=== PATIENT | female | born 1990 | race Caucasian/White ===

== ENCOUNTER 2017-04-24 10:10 | Inpatient (IN) | payer MEDICAID ==
[2017-04-24] VITALS (64 sets, daily range): BP systolic 83–137; BP diastolic 50–102; PULSE 59–154; RESP 16–20; TEMP 97.7–98.9
[~2017-04-24 10:10] MED LIST: CALNTAB; ENOX30IN SQ; HEPA10003 SQ; MAGN250T11 PO
[2017-04-24] MEDS ORDERED: SODIUM CHLORID 0.9% 500 ML INJ 500 ML IV PRN (12:00)
[2017-04-24] MEDS ORDERED: LIDOCAINE HCL 1% 50 ML VIAL INFIL PRN (12:00)
[2017-04-24] MEDS ORDERED: ONDANSETRON HCL 4 MG/2 ML VIAL IV PRN (12:00)
[2017-04-24] MEDS ORDERED: MINERAL OIL 10 ML VIAL TOPICAL PRN (12:00)
[2017-04-24] MEDS ORDERED: CITRIC ACID-SODIUM CITRATE LIQ 30 ML UDC PO SCH (12:00)
[2017-04-24] MEDS ORDERED: LIDOCAINE HCL 1% 50 ML VIAL I-DERMAL PRN (12:00)
[2017-04-24] MEDS ORDERED: LACTATED RINGER'S 1000 ML INJ 1,000 ML IV PRN (12:00)
[2017-04-24] MEDS ORDERED: OXYTOCIN 30 UNITS-500ML PREMIX 500 ML IV ONE (12:00)
--- NOTE | 2017-04-24 12:05 | PD ---
HPI Chief Complaint Contractions Date Seen: April 24, 2017 Time Seen: 10:00 (Seth Siddiqi MD R2) Travel History International Travel<30 Days: No Contact w/Intl Traveler<30Days: No Known Affected Area: No (Seth Siddiqi MD R2) History of Present Illness HPI Patient is a 26-year-old G1 at 39/5 weeks gestation presenting due to regular contractions. Patient reports that she began to experience contractions at 9 AM this morning. Contractions initially occurred about every 5 minutes and have increased in frequency to every 2-3 minutes. She endorses movement, denies vaginal bleeding, leakage of fluid. Last dose of heparin was at 11pm last night. care has been with [facility] after 33 weeks, Care transferred from OB provider in [place], Dr. Luke. In 2009 she had a knee injury and her right lower extremity was immobilized and she was found to have a DVT. She had a PE in 2009. She has been on Lovenox since 16 weeks and was started on Heparin 7,500 units BID since 35 weeks gestation. complications: 1. Pt with history of DVT and PE, on Heparin 7,500 units BID 2. Transfer of care at 33 weeks Para: 0 : 1 (Seth Siddiqi MD R2) History Past Medical History Narrative Medical History of DVT and PE in 2009 (Seth Siddiqi MD R2) Obstetric History Obstetric History G1 Pt denies any complications with current . She was started on Lovenox at 16 weeks and started on Heparin at 35 weeks due to history of DVT and PE. (Seth Siddiqi MD R2) Allergies-Medications (Allergen,Severity, Reaction): Coded Allergies: No Known Allergies (Unverified , 04/22/17) Home Meds Active Scripts Heparin Sodium (Porcine) (Heparin Sodium)10,000 Unit/Ml Inj7,500 Unit SQ BID # 25 BOX Ref 5 Prov:Gemini Cunningham CNM [employer] 03/27/17 Reported Medications Enoxaparin Inj 30 Mg/0.3ML Syr30 Mg SQ DAILY Ref 0 03/12/17 Vitamin (Calna)1 Tab Tab 03/12/17 Magnesium Oxide 250 Mg [id number] Mg PO DAILY Ref 0 03/12/17 Review of Systems General / Constitutional: No: Fever, Chills Eyes: No: Visual changes HENT: No: Headaches Cardiovascular: No: Chest Pain or Discomfort Respiratory: No: Cough Gastrointestinal: Abdominal Pain, No: Nausea, Vomiting Genitourinary: No: Dysuria Musculoskeletal: No: Edema Skin: No Rash Neurologic: No: Headache Psychiatric: No: Mood Disorder (eSth Siddiqi MD R2) Physical Exam Narrative GENERAL: Well-nourished, well-developed patient. SKIN: Warm and dry. HEAD: Normocephalic and atraumatic. EYES: No scleral icterus. No injection or drainage. ENT: No nasal drainage noted. Mucous membranes pink. Airway patent. NECK: Supple, trachea midline. No JVD. CARDIOVASCULAR: Regular rate and rhythm without murmurs, gallops, or rubs. RESPIRATORY: Breath sounds equal bilaterally. No accessory muscle use. ABDOMEN/GI: Abdomen soft, non-tender, bowel sounds present, no rebound, no guarding Gravid to 39 weeks size GENITOURINARY: External Genitalia: intact and normal in appearance Cervix: posterior Dilatation: 3cm Effacement: Station: -3 Presentation: vertex Membranes: Intact Uterine Contractions: Q1-2 minutes FHT's: Category: 1 Baseline: 130 Reactive: + Variability:Moderate Decels: Absent EXTREMITIES: No cyanosis or edema. NEUROLOGICAL: Awake and alert. Motor and sensory grossly within normal limits. Five out of 5 muscle strength in all muscle groups. Normal speech. (Seth Siddiqi MD R2) Data Data Orders Ob (2e) Additional Admit Info (04/24/17 11:56) Admit To Inpatient (04/24/17 ) Code Status (04/24/17 12:00) Vital Signs (Adult) .Per protocol (04/24/17 12:00) Activity Oob Ad Sade (04/24/17 12:00) Heart (04/24/17 12:00) Amnioinfusion (04/24/17 12:00) Urinary Catheter Management .ONCE (04/24/17 12:00) Diet Liquid (04/24/17 Lunch) Lactated Ringer's 1000 Ml Inj (Lr 1000 M (04/24/17 12:00) Lactated Ringer's 1000 Ml Inj (Lr 1000 M (04/24/17 12:00) Sodium Chlorid 0.9% 500 Ml Inj (Ns 500 M (04/24/17 12:00) Sodium Chlor 0.9% 1000 Ml Inj (Ns 1000 M (04/24/17 12:20) Lidocaine 1% Inj (50 Ml) (Xylocaine 1% I (04/24/17 12:00) Citric Acid-Sodium Citrate Liq (Bicitra (04/24/17 12:00) Ondansetron Inj (Zofran Inj) (04/24/17 12:00) Fentanyl Inj (Fentanyl Inj) (04/24/17 12:00) Fentanyl Inj (Fentanyl Inj) (04/24/17 12:00) Complete Blood Count With Diff (04/24/17 12:00) Hold Clot (04/24/17 12:00) Abo/Rh Blood Type (04/24/17 12:00) Urinalysis - C+S If Indicated (04/24/17 12:00) Type And Screen (04/24/17 12:00) Resp Oxygen Non Rebreathe Mask (04/24/17 ) ^ Epidural / Intrathecal Infus (04/24/17 12:00) Oxytocin 30 Units-500ml Premix (Pitocin (04/24/17 12:00) Lidocaine 1% Inj (50 Ml) (Xylocaine 1% I (04/24/17 12:00) Light Mineral Oil (Muri-Lube Oil) (04/24/17 12:00) Inpatient Certification (04/24/17 ) (Seth Siddiqi MD R2) MDM Interpretation(s) Patient is a 26-year-old G1 at 39/5 weeks gestation presenting due to regular contractions. Pt with history of DVT and PE in 2010 and has been on Lovenox until 35 weeks and now on Heparin during this . 1) IUP Category 1 tracing, Reassuring Last dose of heparin was at 11PM Pt desires epidural GBS negative Will admit for labor Pt desires Epidural dw Dr. Fisher (Seth Siddiqi MD R2) Attestation Agree with above. Admit for delivery. (Betty Fisher MD) Seth Siddiqi MD R2 April 24, 2017 12:05 Betty Fisher MD April 24, 2017 14:49
[2017-04-24] MEDS ORDERED: SODIUM CHLOR 0.9% 1000 ML INJ 1,000 ML IV PRN (12:20)
[2017-04-24] MEDS: LACTATED RINGER'S 1000 ML INJ 1,000 ML IV SCH ×3 (12:39→21:42)
[2017-04-24 13:09] LABS: AUTOMATED NEUTROPHIL # 15.3 TH/MM3 (1.8-7.7); BASOPHIL % 0.1 % (0.0-2.0); EOSINOPHIL # 0.1 TH/MM3 (0-0.4); EOSINOPHIL % 0.3 % (0.0-4.0); HEMATOCRIT 42.8 % (35.0-46.0); HEMO FLAGS DIFF FINAL; LYMPHOCYTE # 2.4 TH/MM3 (1.0-4.8); MEAN CELL VOLUME 97.6 FL (80.0-100.0); MEAN CORPUSCULAR HEMOGLOBIN 34.1 PG (27.0-34.0); MEAN CORPUSCULAR HGB CONC 34.9 % (32.0-36.0); MONO % 4.6 % (0.0-8.0); PLATELET COUNT 253 TH/MM3 (150-450); RED BLOOD COUNT 4.38 MIL/MM3 (4.00-5.30); RED CELL DISTRIBUTION WIDTH 11.9 % (11.6-17.2); WHITE BLOOD COUNT 18.6 TH/MM3 (4.0-11.0)
[2017-04-24] MEDS ORDERED: fentaNYL 2MCG-BUPIV 0.125% INJ 100 ML ONE (13:17)
[2017-04-24] MEDS ORDERED: ePHEDrine/NS 25 MG/5 ML SYR ONE (13:17)
[2017-04-24 13:22] LABS: BLOOD, URINE SMALL (NEG); COMMENT (UR) CULT NOT INDICATED; CULTURE IF INDICATED CULT NOT INDICATED; GLUCOSE,URINE NEG (NEG); KETONE, URINE NEG (NEG); MUCUS URINE FEW /lpf (OCC); NITRITE,URINE NEG (NEG); PH, URINE 6.5 (5.0-8.5); SQUAMOUS EPITHELIAL CELL URINE 8 /hpf (0-5); URINE COLOR YELLOW (YELLW/STRAW)
[2017-04-24 14:15] LABS: APTT (PATIENT) 25.8 SEC (24.3-30.1); INTERNATIONAL NORMALIZED RATIO 0.9 RATIO
--- NOTE | 2017-04-24 14:44 | HHI.HP ---
History & Physical H&P Chief Complaint Contractions Date Seen: April 24, 2017 Time Seen: 10:00 Travel History International Travel<30 Days: No Contact w/Intl Traveler<30Days: No Known Affected Area: No History of Present Illness HPI Patient is a 26-year-old G1 at 39/5 weeks gestation presenting due to regular contractions. Patient reports that she began to experience contractions at 9 AM this morning. Contractions initially occurred about every 5 minutes and have increased in frequency to every 2-3 minutes. She endorses movement, denies vaginal bleeding, leakage of fluid. Last dose of heparin was at 11pm last night. care has been with [facility] after 33 weeks, Care transferred from OB provider in [place], Dr. Luke. In 2009 she had a knee injury and her right lower extremity was immobilized and she was found to have a DVT. She had a PE in 2009. She has been on Lovenox since 16 weeks and was started on Heparin 7,500 units BID since 35 weeks gestation. complications: 1. Pt with history of DVT and PE in 2009, on Heparin 7,500 units BID 2. Transfer of care at 33 weeks Para: 0 : 1 History (Limited) History Past Medical History Narrative Medical History of DVT and PE in 2009 Obstetric History Obstetric History G1 Pt denies any complications with current . She was started on Lovenox at 16 weeks and started on Heparin at 35 weeks due to history of DVT and PE. Allergies-Medications Allergies-Medications (Allergen,Severity, Reaction): Coded Allergies: No Known Allergies (Unverified , 04/22/17) Home Meds Active Scripts Heparin Sodium (Porcine) (Heparin Sodium)10,000 Unit/Ml Inj7,500 Unit SQ BID # 25 BOX Ref 5 Prov:Gemini Cunningham CNM [facility] 03/27/17 Reported Medications Enoxaparin Inj 30 Mg/0.3ML Syr30 Mg SQ DAILY Ref 0 03/12/17 Vitamin (Calna)1 Tab Tab 03/12/17 Magnesium Oxide 250 Mg [id number] Mg PO DAILY Ref 0 03/12/17 ROS Review of Systems General / Constitutional: No: Fever, Chills Eyes: No: Visual changes HENT: No: Headaches Cardiovascular: No: Chest Pain or Discomfort Respiratory: No: Cough Gastrointestinal: Abdominal Pain, No: Nausea, Vomiting Genitourinary: No: Dysuria Musculoskeletal: No: Edema Skin: No Rash Neurologic: No: Headache Psychiatric: No: Mood Disorder Physical Exam Physical Exam Narrative GENERAL: Well-nourished, well-developed patient. SKIN: Warm and dry. HEAD: Normocephalic and atraumatic. EYES: No scleral icterus. No injection or drainage. ENT: No nasal drainage noted. Mucous membranes pink. Airway patent. NECK: Supple, trachea midline. No JVD. CARDIOVASCULAR: Regular rate and rhythm without murmurs, gallops, or rubs. RESPIRATORY: Breath sounds equal bilaterally. No accessory muscle use. ABDOMEN/GI: Abdomen soft, non-tender, bowel sounds present, no rebound, no guarding Gravid to 39 weeks size GENITOURINARY: External Genitalia: intact and normal in appearance Cervix: posterior Dilatation: 3cm Effacement: Station: -3 Presentation: vertex Membranes: Intact Uterine Contractions: Q1-2 minutes FHT's: Category: 1 Baseline: 130 Reactive: + Variability:Moderate Decels: Absent EXTREMITIES: No cyanosis or edema. NEUROLOGICAL: Awake and alert. Motor and sensory grossly within normal limits. Five out of 5 muscle strength in all muscle groups. Normal speech. Data Data Data Orders Ob (2e) Additional Admit Info (04/24/17 11:56) Admit To Inpatient (04/24/17 ) Code Status (04/24/17 12:00) Vital Signs (Adult) .Per protocol (04/24/17 12:00) Activity Oob Ad Sade (04/24/17 12:00) Heart (04/24/17 12:00) Amnioinfusion (04/24/17 12:00) Urinary Catheter Management .ONCE (04/24/17 12:00) Diet Liquid (04/24/17 Lunch) Lactated Ringer's 1000 Ml Inj (Lr 1000 M (04/24/17 12:00) Lactated Ringer's 1000 Ml Inj (Lr 1000 M (04/24/17 12:00) Sodium Chlorid 0.9% 500 Ml Inj (Ns 500 M (04/24/17 12:00) Sodium Chlor 0.9% 1000 Ml Inj (Ns 1000 M (04/24/17 12:20) Lidocaine 1% Inj (50 Ml) (Xylocaine 1% I (04/24/17 12:00) Citric Acid-Sodium Citrate Liq (Bicitra (04/24/17 12:00) Ondansetron Inj (Zofran Inj) (04/24/17 12:00) Fentanyl Inj (Fentanyl Inj) (04/24/17 12:00) Fentanyl Inj (Fentanyl Inj) (04/24/17 12:00) Complete Blood Count With Diff (04/24/17 12:00) Hold Clot (04/24/17 12:00) Abo/Rh Blood Type (04/24/17 12:00) Urinalysis - C+S If Indicated (04/24/17 12:00) Type And Screen (04/24/17 12:00) Resp Oxygen Non Rebreathe Mask (04/24/17 ) ^ Epidural / Intrathecal Infus (04/24/17 12:00) Oxytocin 30 Units-500ml Premix (Pitocin (04/24/17 12:00) Lidocaine 1% Inj (50 Ml) (Xylocaine 1% I (04/24/17 12:00) Light Mineral Oil (Muri-Lube Oil) (04/24/17 12:00) Inpatient Certification (04/24/17 ) MDM MDM Interpretation(s) Patient is a 26-year-old G1 at 39/5 weeks gestation presenting due to regular contractions. Pt with history of DVT and PE in 2010 and has been on Lovenox until 35 weeks and now on Heparin during this . 1) IUP Category 1 tracing, Reassuring Last dose of heparin was at 11PM Pt desires epidural GBS negative Will admit for labor Pt desires Epidural dw Seth Shi MD R2 April 24, 2017 12:05 (Seth Siddiqi MD R2) Attestation Agree with above. Admit for delivery. Coags, epidural if desired. (Betty Fisher MD) Seth Siddiqi MD R2 April 24, 2017 14:44 Betty Fisher MD April 24, 2017 14:50
[2017-04-24] MEDS ORDERED: fentaNYL CITRATE 250 MCG/5 ML AMP IV PUSH ONE (15:00)
[2017-04-24] MEDS ORDERED: ACETAMINOPHEN 325 MG TAB PO ONE (15:30)
[2017-04-24] MEDS ORDERED: DO NOT ADMINISTER ANTICOAGULANTS PRN (16:00)
[2017-04-24] MEDS ORDERED: NO SYSTEM NARCOTICS PRN (16:00)
[2017-04-24] MEDS ORDERED: fentaNYL 2MCG-BUPIV 0.125% 100 ML EPIDURAL SCH (16:00)
[2017-04-24] MEDS ORDERED: ePHEDrine/NS 25 MG/5 ML SYR IV PRN (16:00)
--- NOTE | 2017-04-24 17:25 | PD.LABORPN ---
Subjective Subjective Pt is a 26 yo at 39/5 week. Patient admitted in active labor. She received an epidural and is having irregular contractions. Discussed with patient the need for AROM and Pitocin. (Danny Salazar MD R1) Objective Vital Signs Vital Signs Date Time Temp Pulse Resp B/P Pulse Ox O2 Delivery O2 Flow Rate FiO2 04/24/17 17:02 98.2 04/24/17 17:00 102 110/83 04/24/17 17:00 18 04/24/17 16:45 75 109/70 04/24/17 16:30 90 103/71 04/24/17 16:15 75 108/77 04/24/17 16:00 70 110/56 04/24/17 15:45 78 106/66 04/24/17 15:45 78 04/24/17 15:40 72 04/24/17 15:35 83 04/24/17 15:31 73 83/62 04/24/17 15:30 78 04/24/17 15:20 75 04/24/17 15:19 18 04/24/17 15:16 70 102/50 04/24/17 15:15 81 04/24/17 15:11 86 106/67 04/24/17 15:10 81 04/24/17 15:06 133 105/87 04/24/17 15:05 93 04/24/17 15:01 100/84 04/24/17 14:56 91 123/72 04/24/17 14:51 154 116/58 04/24/17 14:50 100 04/24/17 14:46 94 111/78 04/24/17 14:45 99 04/24/17 14:43 97.7 04/24/17 14:43 18 04/24/17 14:40 107 117/68 04/24/17 14:40 92 04/24/17 14:37 95 119/73 04/24/17 14:36 103 118/78 04/24/17 14:35 101 04/24/17 14:31 115 120/102 04/24/17 14:30 113 04/24/17 13:50 16 04/24/17 13:50 16 04/24/17 13:35 101 16 04/24/17 13:32 102 110/81 04/24/17 13:30 99 04/24/17 13:00 16 04/24/17 12:30 16 Objective Exam: Vitals: Temp 98.2, pulse 102, RR 18, bp 110/83 General: alert/oriented times 3, resting comfortably in no acute distress. CVS- ext warm and well perfused Pulm- no resp distress Abd- soft, nt/nd EFM- Cat I: reactive/reassuring Contractions- q 7-8 minutes VE-6cm/80%/-1 (Danny Salazar MD R1) Assessment/Plan Problem List: (1) Abdominal pain Assessment and Plan A/P: Pt is a 26 yo at 39/5. -AROM performed after discussed it in depth with the patient. -reassuring status -anticipate sdw Dr. Fisher (Danny Salazar MD R1) Attestation Pt seen and evaluated with resident. Cat I tracing. I was present for the exam. continue monitoring. Start oxytocin now. (Betty Fisher MD) Danny Salazar MD R1 April 24, 2017 17:25 Betty Fisher MD April 24, 2017 17:34
[2017-04-24] MEDS ORDERED: OXYTOCIN 30 UNITS-500ML PREMIX 500 ML IV SCH (18:00)
[2017-04-24] MEDS ORDERED: CITRIC ACID-SODIUM CITRATE LIQ 30 ML UDC ONE (22:38)
[2017-04-25] VITALS (7 sets, daily range): BP systolic 100–111; BP diastolic 51–78; PULSE 63–89; RESP 18–20; TEMP 97.7–98.4
--- NOTE | 2017-04-25 00:13 | PD.OB.DELI ---
Delivery Date: April 25, 2017 Anesthesia: Epidural Episiotomy: None Vaginal Delivery: Normal Presentation: Occiput anterior Delayed cord clamping (45 sec): Yes : Male One Minute : 8 Five Minute : 8 Weight: [id number] Placenta: Spontaneous delivery Laceration: Vaginal laceration, 1 deg Repair: Chromic running Additional Information This is a 26y/o at 39w5d who presented to the [facility] with contractions, she was admitted in active labor and received an epidural soon after. She progressed well however AROM was performed at 1700 due to spaced out contractions. Oxytocin was started at 1730 as the contractions were still spaced out. She pushed very effectively and the head was delivered atraumatically. The body was delivered atraumatically and a vigorous Male infant was delivered. The was placed on the maternal abdomen. The cord was clamped and cut after it stopped pulsating. . The vagina was examined and a first degree vaginal laceration was noted which was repaired with 3-0 vicryl and 2-0/3-0 chromic. The placenta was delivered spontaneously and noted to be intact. The lacerations were noted to be hemostatic. Bleeding was minimal. All sponge/lap/instruments were accounted for. Betty Fisher MD April 25, 2017 00:13
[2017-04-25] MEDS ORDERED: ACETAMINOPHEN 325 MG TAB PO PRN (00:15)
[2017-04-25] MEDS ORDERED: DOCUSATE SODIUM 50 MG/SENNA 8.6 MG TAB PO PRN (00:15)
[2017-04-25] MEDS ORDERED: ALUMINUM/MAGNESIUM/SIMETH 30 ML CUP PO PRN (00:15)
[2017-04-25] MEDS ORDERED: ONDANSETRON ODT 4 MG TAB PO PRN (00:15)
[2017-04-25] MEDS ORDERED: ZOLPIDEM TARTRATE 5 MG TAB PO PRN (00:15)
[2017-04-25] MEDS ORDERED: WITCH HAZEL 50%/GLYCERIN 12.5% 40 PAD JAR TOPICAL PRN (00:15)
[2017-04-25] MEDS ORDERED: BENZOCAINE 20% TOPICAL SPRAY 60 ML CAN TOPICAL PRN (00:15)
[2017-04-25] MEDS ORDERED: IBUPROFEN 600 MG TAB PO PRN (00:15)
[2017-04-25] MEDS: HEPARIN SODIUM - SQ 10,000 UNITS/ML VIAL SQ SCH ×2 (08:32→21:36)
--- NOTE | 2017-04-25 09:20 | HHI.OB ---
Subjective Remarks 26 year old PPD 1 after vaginal delivery. History complicated by DVT with embolization in 2009 after limb was immobilized. This she took Lovenox in the beginning of and then Heparin starting at 37 weeks. She has minimal lochia. She is . She will follow with [facility]. She desires Depo Provera for control. She has no calf tenderness or shortness of breath. She is ambulating. Pain is well controlled. (Danny Pastor MD R2) Objective Vitals/I&O Vital Signs Date Time Temp Pulse Resp B/P Pulse Ox O2 Delivery O2 Flow Rate FiO2 04/25/17 03:00 63 104/61 04/25/17 03:00 97.7 20 04/25/17 00:31 76 04/25/17 00:31 110/51 04/25/17 00:30 18 04/25/17 00:16 83 106/68 04/25/17 00:00 20 04/25/17 00:00 89 04/25/17 00:00 111/73 04/24/17 23:46 100/85 04/24/17 23:46 94 04/24/17 23:45 98.9 20 04/24/17 23:30 106 126/92 04/24/17 23:00 108 137/88 04/24/17 22:32 18 04/24/17 22:31 88 114/66 04/24/17 22:15 20 04/24/17 22:01 122/72 04/24/17 21:45 18 04/24/17 21:42 18 04/24/17 21:30 98.7 04/24/17 21:30 91 121/83 04/24/17 21:15 18 04/24/17 21:00 83 04/24/17 21:00 116/91 04/24/17 20:45 18 04/24/17 20:31 73 103/60 04/24/17 20:01 59 109/63 04/24/17 19:31 108 123/89 04/24/17 19:25 98.5 04/24/17 19:00 72 119/75 04/24/17 18:35 75 118/77 04/24/17 18:30 77 108/79 04/24/17 18:16 18 04/24/17 18:15 75 121/80 04/24/17 18:07 97 126/79 04/24/17 18:00 97 123/88 04/24/17 17:45 118 117/85 04/24/17 17:30 109 105/79 04/24/17 17:15 101 104/70 04/24/17 17:02 98.2 04/24/17 17:00 102 110/83 04/24/17 17:00 18 04/24/17 16:45 75 109/70 04/24/17 16:30 90 103/71 04/24/17 16:15 75 108/77 04/24/17 16:00 70 110/56 04/24/17 15:45 78 106/66 04/24/17 15:45 78 04/24/17 15:40 72 04/24/17 15:35 83 04/24/17 15:31 73 83/62 04/24/17 15:30 78 04/24/17 15:20 75 04/24/17 15:19 18 04/24/17 15:16 70 102/50 04/24/17 15:15 81 04/24/17 15:11 86 106/67 04/24/17 15:10 81 04/24/17 15:06 133 105/87 04/24/17 15:05 93 04/24/17 15:01 100/84 04/24/17 14:56 91 123/72 04/24/17 14:51 154 116/58 04/24/17 14:50 100 04/24/17 14:46 94 111/78 04/24/17 14:45 99 04/24/17 14:43 97.7 04/24/17 14:43 18 04/24/17 14:40 107 117/68 04/24/17 14:40 92 04/24/17 14:37 95 119/73 04/24/17 14:36 103 118/78 04/24/17 14:35 101 04/24/17 14:31 115 120/102 04/24/17 14:30 113 04/24/17 13:50 16 04/24/17 13:50 16 04/24/17 13:35 101 16 04/24/17 13:32 102 110/81 04/24/17 13:30 99 04/24/17 13:00 16 04/24/17 12:30 16 Objective Remarks GENERAL: Well-nourished, well-developed patient. CARDIOVASCULAR: Regular rate and rhythm without murmurs, gallops, or rubs. RESPIRATORY: Breath sounds equal bilaterally. No accessory muscle use. ABDOMEN/GI: Abdomen soft, non-tender. Fundus: Firm, non-tender at umbilicus. GENITOURINARY: Light to moderate bleeding. EXTREMITIES: No cyanosis or edema, non-tender, without signs of DVT. Medications and IVs Current Medications Medications (Trade) Dose Ordered Sig/Whitney Route Start Time Stop Time Status Last Admin Lactated Ringer's 1,000 ml @ 125 mls/hr Q8H IV 04/24/17 12:00 04/24/17 21:42 Lactated Ringer's 1,000 ml @ 3,000 mls/hr Q20M PRN IV 04/24/17 12:00 Sodium Chloride 500 ml @ 1,000 mls/hr ONCE PRN IV 04/24/17 12:00 04/25/17 11:59 (NS 1000 ml Inj) 1,000 ml @ 100 mls/hr Q10H PRN IV 04/24/17 12:20 (Zofran Inj) 4 mg Q6H PRN IV 04/24/17 12:00 04/24/17 12:40 (fentaNYL INJ) 50 mcg Q1H PRN IV PUSH 04/24/17 12:00 (fentaNYL INJ) 100 mcg Q1H PRN IV PUSH 04/24/17 12:00 04/24/17 14:09 (Muri-Lube Oil) 10 ml UNSCH PRN TOPICAL 04/24/17 12:00 Miscellaneous Information No systemic narcotics to be given except... UNSCH PRN .XX 04/24/17 16:00 04/25/17 15:59 Miscellaneous Information DO NOT ADMINISTER ANY ANTICOAGUL... UNSCH PRN .XX 04/24/17 16:00 04/25/17 15:59 (fentaNYL 2MCG-BUPIV 0.125% INJ) 100 ml @ 0 mls/hr TITRATE EPIDURAL 04/24/17 16:00 04/24/17 21:42 Ephedrine Sulfate 10 mg 10 mg UNSCH PRN IV 04/24/17 16:00 04/25/17 15:59 (Pitocin 30 Units-NS 500 ml Premix) 500 ml @ 0 mls/hr TITRATE IV 04/24/17 18:00 04/24/17 18:08 (Tylenol) 650 mg Q4H PRN PO 04/25/17 00:15 04/25/17 00:29 (Motrin) 600 mg Q6H PRN PO 04/25/17 00:15 (Percocet 5-325 Mg) 2 tab Q4H PRN PO 04/25/17 00:15 (Americaine 20% Top Spr) 1 spray Q4H PRN TOPICAL 04/25/17 00:15 04/25/17 03:12 (Tucks Pads) 1 applic QID PRN TOPICAL 04/25/17 00:15 04/25/17 03:12 (Gertrudis-Colace) 2 tab Q12H PRN PO 04/25/17 00:15 04/25/17 03:12 (Ambien) 5 mg HS PRN PO 04/25/17 00:15 (M-M-R Ii Inj) 0.5 ml ONCE ONCE SQ 04/25/17 16:00 04/25/17 16:01 (Boostrix Inj) 0.5 ml ONCE ONCE IM 04/25/17 16:00 04/25/17 16:01 (Mag-Al Plus Susp Liq) 15 ml Q8H PRN PO 04/25/17 00:15 (Zofran Odt) 4 mg Q6H PRN PO 04/25/17 00:15 (Heparin Inj) 7,500 units Q12HR SQ 04/25/17 09:00 04/25/17 08:32 (Danny Pastor MD R2) Assessment/Plan Assessment and Plan 26 year old PPD 1 after vaginal delivery - Hx of DVT: continue heparin 7500 mg q12hrs - Pain control: Motrin PRN - Encourage exclusive - Monitor lochia amount - Encourage ambulation - Follow up with [facility] after discharge - Anticipate discharge tomorrow Discussed with Dr. Fisher (Danny Pastor MD R2) Attending Attestation Pt seen and examined, discussed continuation of Heparin/Lovenox. Restart Heparin, use up recent rx that was filled. Once completed switch to Lovenox. D/c home tomorrow. (Betty Fisher MD) Danny Pastor MD R2 April 25, 2017 09:20 Betty Fisher MD April 25, 2017 09:43
[2017-04-25] MEDS: oxyCODONE/ACETAMINOPHEN 5 MG/325 MG TAB PO PRN (11:12)
[2017-04-25] MEDS ORDERED: DIPHTH/TETANUS/ACEL PERTUSSIS (BOOSTER) 0.5 ML VIAL/PFS IM ONE (16:00)
[2017-04-25] MEDS ORDERED: MEASLES, MUMPS, RUBELLA VACCINE 0.5 ML VIAL SQ ONE (16:00)
[2017-04-26] MEDS ORDERED: SENN1TAB PO (07:03)
[2017-04-26] MEDS ORDERED: IBUP-232 PO (07:03)
--- NOTE | 2017-04-26 07:04 | HHI.DCPOC ---
Discharge Care Plan Diagnosis: (1) (spontaneous vaginal delivery) (2) History of DVT (deep vein thrombosis) Goals to Promote Your Health * To prevent worsening of your condition and complications * To maintain your health at the optimal level Directions to Meet Your Goals Take your medications as prescribed Follow your dietary instruction Follow activity as directed Keep your appointments as scheduled Take your immunizations and boosters as scheduled If your symptoms worsen call your PCP, if no PCP go to Urgent Care Center or Emergency Room Smoking is Dangerous to Your Health. Avoid second hand smoke Call the 24-hour hour crisis hotline for domestic abuse at Danny Pastor MD R2 April 26, 2017 07:04 Dayo Mariee MD April 26, 2017 09:43
--- NOTE | 2017-04-26 07:12 | HHI.OB ---
Subjective Remarks 26 year old PPD 2 after vaginal delivery. History complicated by DVT with embolization in 2009 after limb was immobilized. This she took Lovenox in the beginning of and then Heparin starting at 37 weeks. She has minimal lochia. She is . She will follow with [facility]. She desires Depo Provera for control. She has no calf tenderness or shortness of breath. She is ambulating. Pain is well controlled. (Danny Pastor MD R2) Remarks Patient seen and evaluated with resident under direct supervision, agree with assessment and plan. (Dayo Mariee MD) Objective Vitals/I&O Vital Signs Date Time Temp Pulse Resp B/P Pulse Ox O2 Delivery O2 Flow Rate FiO2 04/25/17 20:00 98.0 71 18 100/68 04/25/17 08:00 98.4 80 18 108/78 Objective Remarks GENERAL: Well-nourished, well-developed patient. CARDIOVASCULAR: Regular rate and rhythm without murmurs, gallops, or rubs. RESPIRATORY: Breath sounds equal bilaterally. No accessory muscle use. ABDOMEN/GI: Abdomen soft, non-tender. Fundus: Firm, non-tender at umbilicus. GENITOURINARY: Light to moderate bleeding. EXTREMITIES: No cyanosis or edema, non-tender, without signs of DVT. Medications and IVs Current Medications Medications (Trade) Dose Ordered Sig/Whitney Route Start Time Stop Time Status Last Admin Lactated Ringer's 1,000 ml @ 125 mls/hr Q8H IV 04/24/17 12:00 04/24/17 21:42 Lactated Ringer's 1,000 ml @ 3,000 mls/hr Q20M PRN IV 04/24/17 12:00 (NS 1000 ml Inj) 1,000 ml @ 100 mls/hr Q10H PRN IV 04/24/17 12:20 (Zofran Inj) 4 mg Q6H PRN IV 04/24/17 12:00 04/24/17 12:40 (fentaNYL INJ) 50 mcg Q1H PRN IV PUSH 04/24/17 12:00 (fentaNYL INJ) 100 mcg Q1H PRN IV PUSH 04/24/17 12:00 04/24/17 14:09 Mineral Oil 10 ml 10 ml UNSCH PRN TOPICAL 04/24/17 12:00 Fentanyl/ Bupivacaine HCl 100 ml @ 0 mls/hr TITRATE EPIDURAL 04/24/17 16:00 04/24/17 21:42 (Pitocin 30 Units-NS 500 ml Premix) 500 ml @ 0 mls/hr TITRATE IV 04/24/17 18:00 04/24/17 18:08 (Tylenol) 650 mg Q4H PRN PO 04/25/17 00:15 04/25/17 00:29 (Motrin) 600 mg Q6H PRN PO 04/25/17 00:15 (Percocet 5-325 Mg) 2 tab Q4H PRN PO 04/25/17 00:15 04/25/17 11:12 (Americaine 20% Top Spr) 1 spray Q4H PRN TOPICAL 04/25/17 00:15 04/25/17 03:12 (Tucks Pads) 1 applic QID PRN TOPICAL 04/25/17 00:15 04/25/17 03:12 (Gertrudis-Colace) 2 tab Q12H PRN PO 04/25/17 00:15 04/25/17 03:12 (Ambien) 5 mg HS PRN PO 04/25/17 00:15 (Mag-Al Plus Susp Liq) 15 ml Q8H PRN PO 04/25/17 00:15 (Zofran Odt) 4 mg Q6H PRN PO 04/25/17 00:15 (Heparin Inj) 7,500 units Q12HR SQ 04/25/17 09:00 04/25/17 21:36 (Danny Pastor MD R2) Assessment/Plan Problem List: (1) Abdominal pain Assessment and Plan 26 year old PPD 2 after vaginal delivery - Hx of DVT: continue heparin 7500 mg q12hrs. She has plenty at home to make it to her post appt. - Pain control: Motrin PRN - Encourage exclusive - Monitor lochia amount - Encourage ambulation - Follow up with [facility] after discharge - Anticipate discharge today Discussed with Dr. Mariee (Danny Pastor MD R2) Danny Pastor MD R2 April 26, 2017 07:12 Dayo Mariee MD April 26, 2017 09:44
[2017-04-26 09:00] VITALS: BP 122/76; PULSE 74; RESP 16; TEMP 97.8
[2017-04-26] MEDS: HEPARIN SODIUM - SQ 10,000 UNITS/ML VIAL SQ SCH (10:25)
[2017-04-26] MEDS: oxyCODONE/ACETAMINOPHEN 5 MG/325 MG TAB PO PRN (10:25)
[2017-05-06] MEDS ORDERED: ENOX30IN SQ (13:34)
== END 2017-04-26 14:00 | disposition home or self-care (01) | DRG 775 ==
LOC: HOBED 10:10 → H2EA 12:00 → H1EA 04-25 02:45
PROVIDERS: ADMIT Obstetrics & Gynecology; ATTEND Obstetrics & Gynecology
PROC: 10907ZC Drainage of Amniotic Fluid, Therapeutic from Products of Conception, Via Natural or Artificial Opening (ICD-10-PCS; 2017-04-24)
PROC: 3E033VJ Introduction of Other Hormone into Peripheral Vein, Percutaneous Approach (ICD-10-PCS; 2017-04-24)
PROC: 10E0XZZ Delivery of Products of Conception, External Approach (ICD-10-PCS; principal; 2017-04-25)
PROC: 0UQGXZZ Repair Vagina, External Approach (ICD-10-PCS; 2017-04-25)
DX: O71.4 Obstetric high vaginal laceration alone (principal); Z37.0 Single live birth; Z3A.39 39 weeks gestation of pregnancy; Z79.01 Long term (current) use of anticoagulants; Z86.711 Personal history of pulmonary embolism; Z86.718 Personal history of other venous thrombosis and embolism
CPT/HCPCS: 81001; 85025; 85610; 85730; 86850; 86900; 86901; 88307; 90715; 99285; J1644; J2405; J2590; J3010; J7120

== ENCOUNTER → 2018-02-08 | Outpatient (CLI) | payer MEDICAID | LOC: HPND 12:12 | PROVIDERS: ATTEND Obstetrics & Gynecology | DX: O36.80X0 Pregnancy with inconclusive fetal viability, not applicable or unspecified (principal); Z86.718 Personal history of other venous thrombosis and embolism | CPT/HCPCS: 76801; 76817 ==

== ENCOUNTER → 2018-03-10 | Outpatient (CLI) | payer MEDICAID | LOC: HPND 10:06 | PROVIDERS: ATTEND Obstetrics & Gynecology | DX: O99.111 Other diseases of the blood and blood-forming organs and certain disorders involving the immune mechanism complicating pregnancy, first trimester (principal); Z86.718 Personal history of other venous thrombosis and embolism; Z36.82 Encounter for antenatal screening for nuchal translucency | CPT/HCPCS: 76813 ==

== ENCOUNTER → 2018-04-21 | Outpatient (CLI) | payer MEDICAID | LOC: HPND 09:58 | PROVIDERS: ATTEND Obstetrics & Gynecology | DX: O99.112 Other diseases of the blood and blood-forming organs and certain disorders involving the immune mechanism complicating pregnancy, second trimester (principal); O88.212 Thromboembolism in pregnancy, second trimester | CPT/HCPCS: 76811 ==

== ENCOUNTER → 2018-05-19 | Outpatient (CLI) | payer MEDICAID | LOC: HPND 09:54 | PROVIDERS: ATTEND Obstetrics & Gynecology | DX: O99.112 Other diseases of the blood and blood-forming organs and certain disorders involving the immune mechanism complicating pregnancy, second trimester (principal); O88.212 Thromboembolism in pregnancy, second trimester; Z36.82 Encounter for antenatal screening for nuchal translucency | CPT/HCPCS: 76816 ==

== ENCOUNTER 2018-09-21 11:25 | Inpatient (IN) ==
[2018-09-21] MEDS ORDERED: fentaNYL Citrate Inj 100 MCG/2 ML Ampul IV.PUSH PRN ×2 (13:55)
[2018-09-21] MEDS ORDERED: Oxytocin 30 Units/500ml Premix 30 UNITS/500 ML BAG IV.SIG ONE (13:55)
[2018-09-21] MEDS ORDERED: Sod Chloride 0.9% Inj 1,000 ML IV.CONT PRN (13:55)
[2018-09-21] MEDS ORDERED: Sodium Chlor 0.9% Inj 500 ML IV.SIG PRN (13:55)
[2018-09-21] MEDS ORDERED: Naloxone Inj 0.4 MG/ML Vial IV.PUSH PRN (13:55)
--- NOTE | 2018-09-21 13:55 | P.HPOB ---
History of Present Illness Primary Care Physician: No Primary Care Physician Chief Complaint: Jenifer blood pressure History of Present Illness: Patient is a 27-year-old female at 39 weeks and 5 days who is sent here for delivery after being hypertensive in the office and with consideration of her history of DVT at the advice of [facility]. She has no history of hypertension in the past. She has not been hypertensive throughout this . She reports having 2, back to back, elevated blood pressure measurements in Dr. Holliday's office, the recorded pressure that we have is 135/91. She reports being stressed out at this time. She reports no complications in this thus far. She also has a remote history (about 10 years ago) of DVT. She has been treated with anticoagulants prophylactically through this . Her last dose of heparin was at 2030 yesterday (09/21). She is having contractions about every 6 minutes. She denies headache, visual changes, nausea, vomiting, chest pain, palpitations , shortness of breath, abdominal pain, dysuria, vaginal bleeding, gush of fluid , malodorous discharge, or calf pain or tenderness. Past medical history: history of DVT on heparin Past surgical history: cholecystectomy and R knee meniscus repair Weeks Gestation:: 39 Para: 1 : 2 - Inpatient Certification I certify that the inpatient services were ordered in accordance with Medicare regulations governing the order. This includes certification that hospital inpatient services are reasonable and necessary and in the case of services not specified as inpatient-only under 42 CFR 419.22(n), that they are appropriately provided as inpatient services in accordance to with the 2-midnight benchmark under 43 CFR 412.3(e) Review of Systems All other systems reviewed negative except as stated in HPI PMFSH - Tobacco History Smoking Status: Never smoker - Alcohol History How Often Do You Have a Drink Containing Alcohol: Never - Substance Use History Substance History: No History of Abuse - Travel History History of Recent Travel: No Medications and Allergies Allergies Allergy/AdvReac Type Severity Reaction Status Date / Time No Known Allergies Allergy Verified 09/14/18 18:10 Home Medications Medication Instructions Recorded Confirmed Type Heparin 7500 09/14/18 History vit,[id number] 1 tab PO DAILY 09/14/18 09/14/18 History [PNV 29-1] Exam Vital signs: Vital Signs 09/21/18 12:13 Pulse Rate 103 H Blood Pressure 116/71 Narrative: General: Alert, well appearing, in no acute distress Skin: Warm and dry HEENT: Atraumatic. Moist mucus membranes Cardiac: Regular rate and rhythm without murmur Pulmonary: No increased work of breathing. Clear to auscultation bilaterally with good air movement. Abdominal: Non-tender. gravid uterus Extremities: 2+ pedal pulses, no edema, no calf tenderness Genitourinary: Cervix: dilated to 3, thick and high Uterine Contractions: q6 minutes FHT's: Category: 1 Baseline: 135 Reactive: yes Variability: moderate Decels: no Caprini VTE Risk Assessment Caprini VTE Risk Assessment: Moderate/High Risk (score >= 2) Caprini Risk Assessment Model: Point Value = 1 Point Value = 2 Point Value = 3 Point Value = 5 Age 41-60 Minor surgery BMI > 25 kg/m2 Swollen legs Varicose veins or History of unexplained or recurrent spontaneous Oral contraceptives or hormone replacement Sepsis (< 1 month) Serious lung disease, including pneumonia (< 1 month) Abnormal pulmonary function Acute myocardial infarction Congestive heart failure (< 1 month) History of inflammatory bowel disease Medical patient at bed rest Age 61-74 Arthroscopic surgery Major open surgery (> 45 min) Laparoscopic surgery (> 45 min) Malignancy Confined to bed (> 72 hours) Immobilizing plaster cast Central venous access Age >= 75 History of VTE Family history of VTE Factor V Leiden Prothrombin [id number] Lupus anticoagulant Anticardiolipin antibodies Elevated serum homocysteine Heparin-induced thrombocytopenia Other congenital or acquired thrombophilia Stroke (< 1 month) Elective arthroplasty Hip, pelvis, or leg fracture Acute spinal cord injury (< 1 month) Prophylaxis Regimen: Total Risk Factor Score Risk Level Prophylaxis Regimen 0-1 Low Early ambulation 2 Moderate Order ONE of the following: *Sequential Compression Device (SCD) *Heparin 5000 units SQ BID 3-4 Higher Order ONE of the following medications: *Heparin 5000 units SQ TID *Enoxaparin/Lovenox 40 mg SQ daily (WT < 150 kg, CrCl > 30 mL/min) *Enoxaparin/Lovenox 30 mg SQ daily (WT < 150 kg, CrCl > 10-29 mL/min) *Enoxaparin/Lovenox 30 mg SQ BID (WT < 150 kg, CrCl > 30 mL/min) AND/OR *Sequential Compression Device (SCD) 5 or more Highest Order ONE of the following medications: *Heparin 5000 units SQ TID (Preferred with Epidurals) *Enoxaparin/Lovenox 40 mg SQ daily (WT < 150 kg, CrCl > 30 mL/min) *Enoxaparin/Lovenox 30 mg SQ daily (WT < 150 kg, CrCl > 10-29 mL/min) *Enoxaparin/Lovenox 30 mg SQ BID (WT < 150 kg, CrCl > 30 mL/min) AND *Sequential Compression Device (SCD) Assessment and Plan - Diagnosis (1) History of venous thromboembolism Code(s): Z86.718 - Personal history of other venous thrombosis and embolism Status: Chronic (2) 39 weeks gestation of Code(s): Z3A.39 - 39 weeks gestation of Status: Acute - Plan Patient is a 27year old who presents after high blood pressure in the OB office (135/91) and discussing with MFM about her history of DVT -Patient had an elevated blood pressure in the office -She has no prior history of hypertension, is not hypertensive no, and has no recorded elevated urine protein. -Category one tracing -Is having contractions, will admit to L&D with expectant management -Will consider labor augmentation at 1600 History fo VTE -Last dose of heparin was 2030 yesterday -We will continue to hold heparin until after delivery -No current signs or symptoms of DVT -MFM recommended admission for delivery Nutrition: clear liquids
[2018-09-21] MEDS ORDERED: Citric Acid/Sodium Citrate Liq 30 ML UDC PO SCH (14:00)
[2018-09-21] MEDS ORDERED: Sodium Chloride 0.9% 2 ML Flush PRN IV.FLUSH (14:05)
[2018-09-21 15:19] LABS: Baso % (Auto) 0.3 % (0.0-2.0); Eos # (Auto) 0.1 th/mm3 (0.0-0.4); Eos % (Auto) 0.7 % (0.0-4.0); Hematocrit 39.1 % (35.0-46.0); Hemoglobin 14.1 gm/dL (11.6-15.3); Lymph # (Auto) 2.1 th/mm3 (1.0-4.8); Lymph % (Auto) 20.2 % (9.0-44.0); Mean Corpuscular Hemoglobin 36.4 pg (27.0-34.0); Mean Corpuscular Volume 101.2 fL (80.0-100.0); Mean Platelet Volume 8.2 fL (7.0-11.0); Mono # (Auto) 0.7 th/mm3 (0.0-0.9); Mono % (Auto) 6.7 % (0.0-8.0); Neut # (Auto) 7.4 th/mm3 (1.8-7.7); Neut % (Auto) 72.1 % (16.0-70.0); Platelet Count 227 th/mm3 (150-450); Red Blood Count 3.87 mil/mm3 (4.00-5.30); Red Cell Distribution Width 12.5 % (11.6-17.2); White Blood Count 10.3 th/mm3 (4.0-11.0)
[2018-09-21 15:33] LABS: Activated Partial Thrombo Time 23.7 sec (24.3-30.1); INR 0.9 Ratio; Prothrombin Time 9.6 sec (9.8-11.6)
[2018-09-21 15:59] LABS: Bacteria,Urine Rare /hpf; Bilirubin,Urine Negative (Negative); Clarity,Urine Hazy (Clear); Color,Urine Yellow (Yellw/Straw); Glucose,Urine (UA) Negative (Negative); Leukocyte Esterase,Urine Negative (Negative); Mucus,Urine Few /lpf (Occasional); Nitrite,Urine Negative (Negative); Specific Gravity,Urine 1.015 (1.002-1.035); Squamous Epithelial Cell,Urine 6 /hpf (0-5)
[2018-09-21 16:06] LABS: Amphetamine Urine With Conf Neg (Neg); Benzodiazepine Urine With Conf Neg (Neg)
[2018-09-21 16:17] LABS: Platelet Estimate Normal (Normal); Platelet Morphology Normal (Normal); RBC Morphology Normal (Normal)
[2018-09-21] MEDS ORDERED: Oxytocin 30 Units/500ml Premix 30 UNITS/500 ML BAG IV.SIG PRN (17:02)
[2018-09-21] MEDS ORDERED: Sodium Chloride 0.9% 2 ML Flush BID IV.FLUSH SCH (21:00)
--- NOTE | 2018-09-21 22:35 | P.PN ---
Subjective Interval history: The patient is a 27 year-old with IUP at 39.5. She was sent for induction of labor from OB diagnostics and was initially examined and found to be 3/thick/high/posterior. heart tones were reassuring. The patient initially was uncertain if she desired induction of labor however after discussion of the risks, benefits, and alternatives she was in agreement. The patient began to contract painfully and was felt to make cervical change to 5/ 50/-2. SVE at this time by attending with 5/thick/-2, posterior and no evidence of active labor at this time, may still be in prodromal/early labor. Will start oxytocin and patient in agreement at this time. FHR reassuring. Physical Exam Vital signs: Vital Signs 09/21/18 12:13 09/21/18 14:13 09/21/18 14:14 Temperature 98.6 F Pulse Rate 103 H 85 Respiratory Rate 18 Blood Pressure 116/71 98/60 L 09/21/18 18:23 09/21/18 19:41 09/21/18 22:28 Temperature 98.8 F 98.6 F 98.7 F Pulse Rate 114 H 86 102 H Respiratory Rate 18 18 18 Blood Pressure 99/71 L 113/74 102/88 Intake & Output 09/21/18 09/21/18 09/22/18 06:59 18:59 06:59 Weight 89.358 kg 89 kg Other: Weight On Admission 89.358 kg Results - Labs CBC & Chem 7: 09/21/18 14:00 Laboratory Results - last 24 hr 09/21/18 09/21/18 09/21/18 14:00 14:00 14:00 WBC 10.3 RBC 3.87 L Hgb 14.1 Hct 39.1 MCV 101.2 H MCH 36.4 H MCHC 36.0 RDW 12.5 Plt Count 227 MPV 8.2 Prelim Diff (Auto) Slide review pending Neut % (Auto) 72.1 H Lymph % (Auto) 20.2 [place] % (Auto) 6.7 Eos % (Auto) 0.7 Baso % (Auto) 0.3 Neut # (Auto) 7.4 Lymph # (Auto) 2.1 [place] # (Auto) 0.7 Eos # (Auto) 0.1 Baso # (Auto) 0.0 WBC Differential . Diff Scan Auto diff confirmed Differential Comment . Platelet Estimate Normal Platelet Morphology Normal RBC Morphology Normal PT 9.6 L INR 0.9 APTT 23.7 L Urine Color Urine Clarity Urine pH Ur Specific [place] Urine Protein Urine Glucose (UA) Urine Ketones Urine Occult Blood Urine Nitrate Urine Bilirubin Urine Urobilinogen Ur Leukocyte Esterase Urine RBC Urine WBC Ur Squamous Epith Cells Urine Bacteria Urine Mucus Micro UA Comment Ur Microscopic Review Urine Culture Comments Urine Opiates Screen Ur Barbiturates Screen Ur Amphetamine Screen U Benzodiazepines Scrn Urine Cocaine Screen U Cannabinoids Screen Blood Type A Positive 09/21/18 09/21/18 14:00 14:00 WBC RBC Hgb Hct MCV MCH MCHC RDW Plt Count MPV Prelim Diff (Auto) Neut % (Auto) Lymph % (Auto) [place] % (Auto) Eos % (Auto) Baso % (Auto) Neut # (Auto) Lymph # (Auto) [place] # (Auto) Eos # (Auto) Baso # (Auto) WBC Differential Diff Scan Differential Comment Platelet Estimate Platelet Morphology RBC Morphology PT INR APTT Urine Color Yellow Urine Clarity Hazy H Urine pH 6.0 Ur Specific [place] 1.015 Urine Protein Negative Urine Glucose (UA) Negative Urine Ketones Negative Urine Occult Blood Moderate H Urine Nitrate Negative Urine Bilirubin Negative Urine Urobilinogen Less than 2 Ur Leukocyte Esterase Negative Urine RBC 3 Urine WBC 1 Ur Squamous Epith Cells 6 Urine Bacteria Rare H Urine Mucus Few H Micro UA Comment Culture not ind Ur Microscopic Review Not Reportable Urine Culture Comments Culture not ind Urine Opiates Screen Neg Ur Barbiturates Screen Neg Ur Amphetamine Screen Neg U Benzodiazepines Scrn Neg Urine Cocaine Screen Neg U Cannabinoids Screen Neg Blood Type
[2018-09-22] MEDS ORDERED: fentaNYL 2MCG-Bupiv 0.125% Epi 150 ML EPIDURAL ONE (01:58)
[2018-09-22] MEDS ORDERED: Lidocaine 2%/Epinephrine 1:200,000 PF Inj 20 ML Vial ONE (02:06)
[2018-09-22] MEDS ORDERED: Lidocaine 1% Inj 50 ML Vial ONE (03:24)
[2018-09-22] MEDS ORDERED: fentaNYL 2MCG-Bupiv 0.125% Epi 150 ML EPIDURAL PRN (03:41)
[2018-09-22] MEDS ORDERED: fentaNYL Citrate Inj 100 MCG/2 ML Ampul EPIDURAL ONE (03:41)
[2018-09-22] MEDS ORDERED: Benzocaine 20% Top Spray 60 ML Can TOPICAL PRN (05:47)
[2018-09-22] MEDS ORDERED: Acetaminophen 325 MG Tablet PO PRN (05:47)
[2018-09-22] MEDS ORDERED: Naloxone Inj 0.4 MG/ML Vial IV.PUSH PRN (05:47)
[2018-09-22] MEDS ORDERED: Zolpidem Tartrate 5 MG Tablet PO PRN (05:47)
[2018-09-22] MEDS ORDERED: Bisacodyl 10 MG Supp RECTAL PRN (05:47)
[2018-09-22] MEDS ORDERED: Oxytocin 30 Units/500ml Premix 30 UNITS/500 ML BAG IV.CONT PRN (05:47)
[2018-09-22] MEDS ORDERED: Witch Hazel 50%/Glyderin 12.5% 40 Pad Jar RECTAL PRN (05:47)
--- NOTE | 2018-09-22 05:49 | P.PN ---
Subjective Interval history: Delivery Note The patient progressed to complete/complete/0 and commence spontaneous maternal expulsive efforts with SROM of clear fluid. The fetus rapidly descended in the vagina and the head delivered spontaneously and atraumatically. The anterior shoulder was delivered spontaneously and atraumatically followed by delivery of the remainder of the . The was vigorous at delivery and placed on the maternal abdomen. The cord was doubly clamped and cut after a delay of approximately 1 minute. Cord blood was obtained for the nursery. The edge of the placenta was manually and the remainder of the placenta delivered spontaneously. The placenta appeared intact. Apgars 8/9. Mother and baby both doing well. No lacerations noted. Physical Exam Vital signs: Vital Signs 09/21/18 12:13 09/21/18 14:13 09/21/18 14:14 Temperature 98.6 F Pulse Rate 103 H 85 Respiratory Rate 18 Blood Pressure 116/71 98/60 L 09/21/18 18:23 09/21/18 19:41 09/21/18 22:28 Temperature 98.8 F 98.6 F 98.7 F Pulse Rate 114 H 86 102 H Respiratory Rate 18 18 18 Blood Pressure 99/71 L 113/74 102/88 09/22/18 01:40 09/22/18 02:24 09/22/18 02:25 Temperature 97.8 F Pulse Rate 117 H 127 H 104 H Respiratory Rate 18 18 Blood Pressure 118/79 119/60 124/57 L 09/22/18 02:33 09/22/18 03:00 09/22/18 03:25 Temperature Pulse Rate 115 H 106 H 109 H Respiratory Rate 18 18 18 Blood Pressure 112/66 116/76 09/22/18 03:30 09/22/18 03:55 09/22/18 04:00 Temperature 97.8 F Pulse Rate 100 H 100 H Respiratory Rate 18 Blood Pressure 119/73 106/60 09/22/18 04:03 09/22/18 04:30 09/22/18 05:00 Temperature 97.8 F Pulse Rate 99 H 87 Respiratory Rate 18 18 Blood Pressure 104/55 L 104/69 Intake & Output 09/21/18 09/21/18 09/22/18 06:59 18:59 06:59 Intake Total 1000 / 1000 Balance 1000 / 1000 Weight 89.358 kg 89 kg Intake: IV 1000 / 1000 LR 1000 mL Inj 1,000 ML @ 125 1000 / 1000 mls/hr IV.CONT .Q8H [facility] Rx#: [id number] Other: Weight On Admission 89.358 kg Results - Labs CBC & Chem 7: 09/21/18 14:00 Laboratory Results - last 24 hr 09/21/18 09/21/18 09/21/18 14:00 14:00 14:00 WBC 10.3 RBC 3.87 L Hgb 14.1 Hct 39.1 MCV 101.2 H MCH 36.4 H MCHC 36.0 RDW 12.5 Plt Count 227 MPV 8.2 Prelim Diff (Auto) Slide review pending Neut % (Auto) 72.1 H Lymph % (Auto) 20.2 [place] % (Auto) 6.7 Eos % (Auto) 0.7 Baso % (Auto) 0.3 Neut # (Auto) 7.4 Lymph # (Auto) 2.1 [place] # (Auto) 0.7 Eos # (Auto) 0.1 Baso # (Auto) 0.0 WBC Differential . Diff Scan Auto diff confirmed Differential Comment . Platelet Estimate Normal Platelet Morphology Normal RBC Morphology Normal PT 9.6 L INR 0.9 APTT 23.7 L Urine Color Urine Clarity Urine pH Ur Specific [place] Urine Protein Urine Glucose (UA) Urine Ketones Urine Occult Blood Urine Nitrate Urine Bilirubin Urine Urobilinogen Ur Leukocyte Esterase Urine RBC Urine WBC Ur Squamous Epith Cells Urine Bacteria Urine Mucus Micro UA Comment Ur Microscopic Review Urine Culture Comments Urine Opiates Screen Ur Barbiturates Screen Ur Amphetamine Screen U Benzodiazepines Scrn Urine Cocaine Screen U Cannabinoids Screen Blood Type A Positive 09/21/18 09/21/18 14:00 14:00 WBC RBC Hgb Hct MCV MCH MCHC RDW Plt Count MPV Prelim Diff (Auto) Neut % (Auto) Lymph % (Auto) [place] % (Auto) Eos % (Auto) Baso % (Auto) Neut # (Auto) Lymph # (Auto) [place] # (Auto) Eos # (Auto) Baso # (Auto) WBC Differential Diff Scan Differential Comment Platelet Estimate Platelet Morphology RBC Morphology PT INR APTT Urine Color Yellow Urine Clarity Hazy H Urine pH 6.0 Ur Specific [place] 1.015 Urine Protein Negative Urine Glucose (UA) Negative Urine Ketones Negative Urine Occult Blood Moderate H Urine Nitrate Negative Urine Bilirubin Negative Urine Urobilinogen Less than 2 Ur Leukocyte Esterase Negative Urine RBC 3 Urine WBC 1 Ur Squamous Epith Cells 6 Urine Bacteria Rare H Urine Mucus Few H Micro UA Comment Culture not ind Ur Microscopic Review Not Reportable Urine Culture Comments Culture not ind Urine Opiates Screen Neg Ur Barbiturates Screen Neg Ur Amphetamine Screen Neg U Benzodiazepines Scrn Neg Urine Cocaine Screen Neg U Cannabinoids Screen Neg Blood Type
--- NOTE | 2018-09-22 05:50 | P.OBDELI ---
Weeks Gestation: 39 Medical Induction of Labor: No Artificial Rupture of Membrane: No Anesthesia: None Episiotomy: none Vaginal Delivery: Normal Presentation: Occiput anterior Nuchal Cord: None Delayed Cord Clamping (45 sec): Yes Placenta: Spontaneous delivery Estimated blood loss (mL): 100 Infant: Female Additional Information: delivered via on 09/22/18 at 0534 with no complications. No vaginal lacerations. apgars: 8/9 wt: 3585g
[2018-09-22] MEDS: Senna/Docusate Sodium 8.6/50 MG Tablet PO SCH ×2 (13:53→21:20)
[2018-09-22] MEDS ORDERED: Measles/Mumps/Rubella Vaccine Inj 0.5 ML Vial SQ ONE (16:00)
[2018-09-22] MEDS ORDERED: Diphtheria/Tetanus/Pertussis Vaccine Inj 0.5 ML Syringe IM ONE (16:00)
[2018-09-23] MEDS ORDERED: Enoxaparin Inj 40 MG/0.4 ML Syringe SQ ONE (05:30)
--- NOTE | 2018-09-23 07:59 | P.PNOB ---
Subjective Post day: 1 Interval history: Pt seen and examined beside this morning. No N/V, tolerating PO. Ambulating and voiding without difficulty. Denies any CP/SOB/dizzyness. No calf tenderness. Pain well-controlled on current medications. Objective Vital Signs/I&O: Vital Signs 09/22/18 08:30 09/22/18 20:00 Temperature 98.1 F 98.1 F Pulse Rate 91 H 85 Respiratory Rate 2 L 18 Blood Pressure 102/66 89/56 L Result Diagrams: 09/21/18 14:00 Objective Remarks: GENERAL: Well-nourished, well-developed patient. CARDIOVASCULAR: Regular rate and rhythm without murmurs, gallops, or rubs. RESPIRATORY: Breath sounds equal bilaterally. No accessory muscle use. ABDOMEN/GI: Abdomen soft, non-tender. Fundus: Firm, non-tender at umbilicus. GENITOURINARY: Light to moderate bleeding. EXTREMITIES: No cyanosis or edema, non-tender, without signs of DVT. Medications and IVs: Active Medications Acetaminophen (Tylenol) 650 mg PO Q4H PRN PRN Reason: PAIN SCALE 1 TO 2 Al Hydroxide/Mg Hydroxide (Milk Of Magnesia Liq) 30 ml PO Q12H PRN PRN Reason: Mild Constipation Benzocaine (Americaine 20% Top [place]) 1 spray TOPICAL Q4H PRN PRN Reason: For Perineum Discomfort Last Admin: 09/22/18 08:14 Dose: 1 spray Bisacodyl (Dulcolax Supp) 10 mg RECTAL DAILY PRN PRN Reason: SEVERE CONSITIPATION Heparin Sodium (Porcine) (Heparin Inj) 7,500 units SQ Q12HR NIC Oxytocin (Pitocin 30 Units/Ns 500 Ml Premix) 30 units in 500 mls @ 100 mls/hr IV.CONT UNSCH PRN PRN Reason: Heavy bleeding Ibuprofen (Motrin) 800 mg PO Q8H PRN PRN Reason: For Cramping Last Admin: 09/22/18 21:27 Dose: 800 mg Lactulose (Lactulose Liq) 30 ml PO DAILY PRN PRN Reason: SEVERE CONSITIPATION Naloxone HCl (Narcan Inj) 0.1 mg IV.PUSH Q2M PRN PRN Reason: for opiate reversal Ondansetron HCl (Zofran Odt) 4 mg PO Q6H PRN PRN Reason: NAUSEA OR VOMITING Senna/Docusate Sodium (Gertrudis-Colace) 1 tab PO BID [facility] Last Admin: 09/22/18 21:20 Dose: Not Given Sennosides (Senokot) 17.2 mg PO Q12H PRN PRN Reason: Moderate Constipation Sodium Chloride (Ns Flush) 2 ml IV.FLUSH BID [facility] Last Admin: 09/23/18 00:00 Dose: Not Given Sodium Chloride (Ns Flush) 2 ml IV.FLUSH PRN PRN PRN Reason: FLUSH AFTER USING IV ACCESS Witch Antonia/Glycerin (Tucks Pads) 1 applicatio RECTAL QID PRN PRN Reason: HEMORRHOIDS Last Admin: 09/22/18 08:14 Dose: 1 applicatio Zolpidem Tartrate (Ambien) 5 mg PO HS PRN PRN Reason: SLEEP Assessment and Plan - Diagnosis (1) History of venous thromboembolism Code(s): Z86.718 - Personal history of other venous thrombosis and embolism Status: Chronic (2) Vaginal delivery Code(s): O80 - Encounter for full-term uncomplicated delivery Status: Acute - Plan PPD#1 - Cont routine PPM care, 24hrs ppm now - Cont to encourage ambulation - Contraception: unsure, cont to discuss with PCP - VSS, Hb stable hx of DVT, PE Resumed Heparin 24hrs after delivery (530AM this morning) Will cont to Heparin/Lovenox x 6 weeks Pt aware, PCP aware
[2018-09-23] MEDS ORDERED: Heparin - SQ 10,000 UNITS/ML Vial SQ SCH (09:00)
[2018-09-23] MEDS: Senna/Docusate Sodium 8.6/50 MG Tablet PO SCH (09:29)
[2018-09-23] MEDS ORDERED: Diphtheria/Tetanus/Pertussis Vaccine Inj 0.5 ML Syringe IM ONE (17:30)
== END 2018-09-23 18:05 | disposition home or self-care (01) ==
LOC: H2E 11:25 → H1EA 09-22 08:05
PROVIDERS: ADMIT Obstetrics & Gynecology; ATTEND Obstetrics & Gynecology